=== PATIENT | male | born 1940 | race Caucasian/White ===

== ENCOUNTER → 2023-10-02 07:41 | Outpatient (REF) | payer MEDICARE, SELFPAY ==
[2023-10-02 10:05] LABS: % Basophils 0.3 % (0-2); % Eosinophils 1.2 % (0-6); % Immature Granulocytes 0.2 % (0-0.5); % Lymphocytes 36.4 % (20.5-51.1); % Monocytes 8.4 % (1.7-9.3); % Neutrophils 53.5 % (42.2-75.2); Absolute Eosinophils 0.1 10^3/uL (0-0.7); Absolute Lymphocytes 2.4 10^3/uL (1.2-3.4); Absolute Monocytes 0.6 10^3/uL (0.1-0.6); Absolute Neutrophils 3.5 10^3/uL (1.4-6.5); Hematocrit 43.5 % (39.0-52.0); Hemoglobin 14.6 g/dL (13.0-18.0); Mean Corp Hgb Conc. 33.6 g/dL (33.0-37.0); Mean Corpuscular Hgb 32.4 pg (27.0-31.0); Mean Corpuscular Volume 96.5 fL (80.0-94.0); Nucleated Red Blood Cells % 0 % (-); Platelet Count 183 10^3/uL (130-400); Red Blood Cell Count 4.51 10^6/uL (4.70-6.10); Red Cell Dist. Width 12.2 % (11.5-14.5); White Blood Cell Count 6.6 10^3/uL (4.8-10.8)
[2023-10-02 11:04] LABS: ALT (SGPT) 20 U/L (0-50); AST (SGOT) 32 U/L (17-59); Albumin 4.1 g/dl (3.5-5.0); Alkaline Phosphatase 49 U/L (38-126); Blood Urea Nitrogen 20 mg/dl (9-20); Calcium 9.7 mg/dl (8.4-10.2); Carbon Dioxide 27 mmol/L (22-30); Chloride 105 mmol/L (98-107); Glucose 99 mg/dl (70-99); HDL Cholesterol 52 mg/dl; LDL Cholesterol, Calculated 102 mg/dl; Potassium 4.5 mmol/L (3.5-5.1); Sodium 136 mmol/L (135-145); Total Cholesterol 175 mg/dl (50-199); Total Protein 6.9 g/dl (6.3-8.2); Triglyceride 105 mg/dl (10-149); Very Low Density Lipoprotein 21 mg/dl (0-30); eGFR > 60.00
[2023-10-02 11:35] LABS: PSA, Total - Screen 3.06 ng/ml (0.0-4.0); TSH 2.76 uIU/ml (0.47-4.68)
[2023-10-02 12:06] LABS: Glycohemoglobin (HgbA1c) 5.9 % (4.0-5.6)
== END ==
LOC: HWLAB 07:41
PROVIDERS: ATTENDING PHYSICIAN Family Medicine
DX: E78.49 Other hyperlipidemia (principal); E73.9 Lactose intolerance, unspecified; Z12.5 Encounter for screening for malignant neoplasm of prostate; E03.9 Hypothyroidism, unspecified; R73.09 Other abnormal glucose
CPT/HCPCS: 36415; 80053; 80061; 83036; 84443; 85025; G0103

== ENCOUNTER 2024-01-05 23:58 | Inpatient (IN) | payer MEDICARE, SELFPAY ==
[2024-01-05 21:57] VITALS: BP 134/98
[2024-01-05 22:09] LABS: % Basophils 0.1 % (0-2); % Eosinophils 0.1 % (0-6); % Immature Granulocytes 0.3 % (0-0.5); % Lymphocytes 24.2 % (20.5-51.1); % Monocytes 10.5 % (1.7-9.3); % Neutrophils 64.8 % (42.2-75.2); Absolute Monocytes 1.3 10^3/uL (0.1-0.6); Absolute Neutrophils 8.1 10^3/uL (1.4-6.5); Hematocrit 43.8 % (39.0-52.0); Hemoglobin 15.3 g/dL (13.0-18.0); Mean Corp Hgb Conc. 34.9 g/dL (33.0-37.0); Mean Corpuscular Hgb 31.2 pg (27.0-31.0); Mean Corpuscular Volume 89.4 fL (80.0-94.0); Mean Platelet Volume 10.2 fL (7.4-10.4); Nucleated Red Blood Cells % 0 % (-); Platelet Count 196 10^3/uL (130-400); Red Cell Dist. Width 11.9 % (11.5-14.5); White Blood Cell Count 12.5 10^3/uL (4.8-10.8)
[2024-01-05 22:29] LABS: ALT (SGPT) 16 U/L (0-50); AST (SGOT) 26 U/L (17-59); Albumin 4.5 g/dl (3.5-5.0); Blood Urea Nitrogen 27 mg/dl (9-20); Carbon Dioxide 27 mmol/L (22-30); Glucose 107 mg/dl (70-99); Potassium 4.6 mmol/L (3.5-5.1); Total Bilirubin 1.3 mg/dl (0.2-1.3); Total Protein 7.1 g/dl (6.3-8.2); eGFR > 60.00
[2024-01-05 22:38] LABS: Alkaline Phosphatase 51 U/L (38-126); Calcium 10.2 mg/dl (8.4-10.2); Chloride 100 mmol/L (98-107); Sodium 135 mmol/L (135-145)
--- NOTE | 2024-01-05 23:29 | ED.GENMED ---
History of Present Illness
General
Chief Complaint: Skin Problem
Source: patient
Exam Limitations: none
Time Seen by Provider: 01/05/24 23:18
History of Present Illness
History of Present Illness:
This is a 83 year old male that comes in with c/o pain and redness of the right arm. States that he had a little pimple on the elbow about 2 days ago. State that today they noticed that his arm is red and it is very painful. States that he has pain
when he bends his elbow. Family states that he is to have a cervical laminectomy on . Denies any fever, chills, chest pain, SOB, abd pain, nausea, vomiting, diarrhea, headache, dizziness. urinary burning.
Past History
Past History
ED Past Medical History: HTN, Hypercholesterolemia and Hypothyroidism
ED Past Surgical History: Cardiac (angioplasty)
Social History
Tobacco: Non-smoker
Alcohol: None
Personal:
Living: with family
Review of Systems
Review of Systems
All Other Systems: ROS reviewed and negative except as documented in HPI and ROS
Constitutional: Reports no symptoms; Denies fever or chills
EENT: Reports no symptoms
Respiratory: Reports no symptoms; Denies cough or trouble breathing
Cardiac: Reports no symptoms; Denies chest pain
ABD/GI: Reports no symptoms; Denies abdominal pain, nausea, vomiting or diarrhea
: Reports no symptoms; Denies dysuria, frequency or urgency
Musculoskeletal: Reports joint pain (Right elbow slight swelling)
Skin: Reports other (Redness right arm)
Neurological: Reports no symptoms; Denies dizzy or headache
Psychiatric: Reports no symptoms
Phy Exam
General Physical Exam
General Presentation: mild distress
General age: appears stated age
General Skin: warm and dry
General Habitus: elderly
General Mental: alert
General Hydration: appears well hydrated
ENT Exam
ENT Exam: TM's normal, pharynx normal and neck supple
Eye Exam
Eye Exam: EOMI
Cardiovascular Exam
Cardiovascular Exam: regular rate/rhythm, no edema and normal peripheral pulses
Pulmonary Exam
Pulmonary Exam: lungs clear, no respiratory distress, no rales, chest non tender, no crackles, no rhonchi, no wheezing and no cough
Gastrointestinal Exam
Gastrointestinal Exam: normal bowel sounds, non tender, soft, no organomegaly, no pulsatile mass and non distended
Musculoskeletal Exam
Musculoskeletal Exam: other (Pain with flexion of the right elbow. Slight swelling noted over the Olecranon process)
Skin Exam
Skin Exam: normal color, warm/dry, no petechia and redness (Of the right forearm into the elbow and half way up the upper arm. )
Psychiatric Exam
Psychiatric Exam: normal mood/affect
Course
Orders/Labs/Results
Orders:
Orders
01/05/24 22:02
Complete Blood Count/With Diff Urgent
Comprehensive Metabolic Panel Urgent
01/05/24 23:00
Flush (0.9% Sodium Chloride) [Flush (Nss)] See Dose Instructions IV PER PROTOCOL
01/05/24 23:29
Piperacillin/Tazo 3.375 Gram [Zosyn] 3.375 gram in 50 ml IV NOW
Vancomycin 1 Gram/200 ml [Vancocin] 1 gram in 200 ml IV NOW
01/05/24 23:54
Admit/Transfer Patient As Directed
Co-Sign Provider:
Level of Care: Inpatient admission
Assign to:: Medical/Surgical
Physician / Group: [email or web address]
Diagnosis: Rt arm cellulitis
Reason for Hospitalization: Rt arm cellulitis
Expected length of stay greater than two midnights?: Yes
ELOS- Estimated Length of Stay in days: 2
I certify the patient meets the requirements for IP care: Yes
PRN Pain Medication Management As Directed
May give lesser potent ordered pain med per pt: Yes
preference::
Protocol:: Medication orders for pain may be administered in a
manner that supports deferring to patient preference
when the pt is:
- Requesting an ordered lesser potent pain medication.
Least to most potent pain medications are defined
as: acetaminophen < NSAID < tramadol < opioids
(morphine, oxycodone, hydromorphone).
- Requesting a lesser dose of the same medication IF
ORDERED.
- Requesting a less intrusive route of administration
if both routes are prescribed by the provider (PO <
IV).
01/05/24 23:55
Code Status As Directed
Resuscitation Status: Full Code
01/06/24 00:00
CR Elbow - Right Min 3 Views Urgent
Reason For Exam: Pain and swelling
01/06/24 00:53
Acetaminophen [Tylenol] 650 mg PO Q4HPRN PRN
Bisacodyl [Dulcolax] 10 mg RECTAL [id number] PRN
Docusate W/Senna [Senokot-S] 1 tablet PO BIDPRN PRN
Piperacillin/Tazo 3.375 Gram [Zosyn] 3.375 gram in 50 ml IV Q6H
Polyethylene Glycol Powder [Miralax] 17 grams PO DAILYPRN PRN
VANCOMYCIN Pharmacy to Dose [VANCOCIN Pharmacy to Dose] 1 each Pharmacy To Prepare [Call Pharmacy To Prepare] 0 ml IV PER PROTOCOL
01/06/24 00:53
Activity As Directed
Activity Level: With Assistance
Vital Signs As Directed
Frequency: Per unit guidelines
Ot Eval And Treat Routine
Pt Eval And Treat Routine
Activity Level: With Assistance
DX Deep Vein Thrombosis Video Routine
01/06/24 Breakfast
Cholesterol Lowering
At Your Request: Full Participation
Does patient need a safe tray?: No
Cholesterol Lowering: Sodium, 2 Gram
Basic Metabolic Panel IN AM
Complete Blood Count/No Diff IN AM
01/06/24 08:00
Levothyroxine [Synthroid] 112 mcg PO DAILY
Lisinopril [Zestril] 5 mg PO DAILY
Tamsulosin [Flomax] 0.4 mg PO DAILY
simvastatin 10 mg PO DAILY
01/06/24 18:00
Enoxaparin Sodium [Lovenox] 40 mg SC QPM
Abnormal Lab Results
01/05/24
22:02
WBC 12.5 H 10^3/uL
(4.8-10.8)
MCH 31.2 H pg
(27.0-31.0)
Absolute Neuts (auto) 8.1 H 10^3/uL
(1.4-6.5)
Absolute Monos (auto) 1.3 H 10^3/uL
(0.1-0.6)
Monocytes % 10.5 H %
(1.7-9.3)
BUN 27 H mg/dl
(9-20)
Glucose 107 H mg/dl
(70-99)
01/05/24 22:02
01/05/24 22:02
Leukocytosis, Dehydration. Glucose nonfasting.
Vital Signs
Initial and Last Documented VS:
Initial Vital Signs
Temp Pulse Resp BP Pulse Ox
98.7 F 103 18 134/98 98
01/05/24 21:57 01/05/24 21:57 01/05/24 21:57 01/05/24 21:57 01/05/24 21:57
Last Documented Vital Signs
Temp Pulse Resp BP Pulse Ox
99.3 F 97 20 124/75 95
01/05/24 23:38 01/05/24 23:38 01/05/24 23:38 01/05/24 23:38 01/05/24 23:38
MDM/Problems Addressed
Differential Diagnosis Includes:
Cellulitis,
MDM/Problems Addressed:
This is a 83 year old male that comes in with c/o pain and redness of the right elbow and arm. States that there was a small pimple there 2 days ago and today they noticed that his arm is red and swollen. States that he has pain with flexion. States
that he is due to have a cervical laminectomy on .
Will get labs. Explained to patient that there is a small amount of fluid there. Would hold off on tapping elbow and start on antibiotics to treat the infection. Will admit. Hospitalist notified.
Chronic conditions affecting care:
NA
Acute Exacerbation and/or Progression of Chronic Illness:
NA
*Radiology
Radiology exam reviewed: preliminary read by ED provider (Right elbow- Small amount of fluid noted. Negative for any obvious osteomyelitis. )
*Pulse Oximetry
Patient hypoxic: no
*EKG
Interpreted by ED Provider?: NA
Rate: EKG- N/A
*[employer] Supervisor Interpretation
Rate: [employer] Supervisor- N/A
*Critical Care Note
Total Time (30-74mins, 75-104mins- exclusive of procedures): Not Applicable
ED Attending Note
-
Portions of this chart may have been created with voice recognition software.� Occasional wrong word or��sound alike� substitutions may have occurred due to the inherent limitations of voice recognition software.
Discharge Plan
Departure
Patient Disposition: Admit
Date of Disposition: 01/05/24
Time of Disposition: 23:40
Admit to: Med/Surg
Presentation/result/management discussed w/ accepting MD/DO: Hospitalist
Patient with high blood pressure during this ER visit?: Yes
Condition: Good
Covid-19: Not Applicable
Discharge Problem:
Cellulitis of arm, right
Interventions
Interventions:
*Risk Screen - Suicide Last Done: 01/05/24 21:57
*General Assessment Last Done: 01/05/24 21:57
*Neglect/Abuse Screening Last Done: 01/05/24 21:57
ED- Fall Risk Assessment Last Done: 01/05/24 23:35
*ED COVID-19 Vaccine History Last Done: 01/05/24 21:57
ED-Skin Assessment Last Done: 01/05/24 23:35
[2024-01-05 23:38] VITALS: BP 124/75
[2024-01-05 23:39] VITALS: BMI 27.5
--- NOTE | 2024-01-05 23:50 | HPS.HSE ---
Family Physician
-
Family Physician: Steve Hernandez
Chief Complaint
-
red and painful swollen Rt Elbow
History of Present Illness
HPI
83M pending cervical laminectomy01/08/24 seen at ER for evaluation of Rt elbow pain with redness, swollen and spreading down the arm.
Denied trauma or recent IV peripheral cath.
At ER VSS:
T 99.3
Labs: WCC 12.5
Pending XR elbow report.
Medical History
Past Medical History
Past Medical History: Reports HTN, Hypercholesterolemia and Hypothyroidism
Past Surgical History: Reports Cardiac (angiopalsty ) and Orthopedic (cervical laminectomy )
Social History
Tobacco: Non-smoker
Alcohol: Occasional
Drug: None
Family History
Family History: Not pertinent
Allergies / Home Medications
Allergies reflects when Allergies were last updated in [facility].
Home Medications with original date entered in [facility]
Allergy/Medication List:
Allergies
Allergy/AdvReac Type Severity Reaction Status Date / Time
No Known Allergies Allergy Verified 01/05/24 21:58
Home Medications
lisinopril 5 mg tablet 5 mg PO DAILY 12/10/22
simvastatin 10 mg tablet 10 mg PO DAILY 12/10/22
levothyroxine 112 mcg tablet 112 mcg PO DAILY 01/05/24
tamsulosin 0.4 mg capsule 0.4 mg PO DAILY 01/05/24
Review of Systems
-
Constitutional: Reports No Symptoms
EENT: Reports No Symptoms
Respiratory: Reports No Symptoms
Cardiac: Reports No Symptoms
Abdomen/GI: Reports No Symptoms
: Reports No Symptoms
Musculoskeletal: Reports See HPI
Skin: Reports See HPI
Neurological: Reports No Symptoms
Endocrine: Reports No Symptoms
Hematologic/Lymphatic: Reports No Symptoms
Psych: Reports No Symptoms
Physical Exam
Vital Signs
Vital Signs
Temp Pulse Resp BP Pulse Ox
99.3 F 97 20 124/75 95
01/05/24 23:38 01/05/24 23:38 01/05/24 23:38 01/05/24 23:38 01/05/24 23:38
Physical Exam
General: Well Developed, Well Nourished, No Apparent Distress, Comfortable and Conversant
HEENT: NormoCephalic and Anicteric
Respiratory: Clear
Cardiac: S1/S2 and Regular Rhythm
Breast: Deferred by me
Rectal: Deferred by Provider
Genito-urinary: Deferred by me
Musculoskeletal: Other (painfull, warm amd erythematous swollen and fluctual olecranon bursa and elbow )
Skin: Other (see abobe )
Neuro: AO x 3 and No Motor Deficits
Psych: Calm and Intact Judgment/Insight
Laboratory Results
-
01/05/24 22:02
01/05/24 22:02
Laboratory Results
Total Bilirubin 1.3 mg/dl (0.2-1.3) 01/05/24 22:02
AST 26 U/L (17-59) 01/05/24 22:02
ALT 16 U/L (0-50) 01/05/24 22:02
Alkaline Phosphatase 51 U/L (38-126) 01/05/24 22:02
Data Reviewed
-
Diagnostic Radiology: Other (pending XR Rt elblow )
Lab Data: Labs Reviewed by me
Impression/Plan
-
Reviewed VS: T 99.3 HR 97 BP 125/75 RR20 POx 95 on RA
Data
WCC 12.5
BUN 27
eGFR > 60
XR Rt Elbow report pending
NO PRIOR hospitalist admission:
ASSESSMENT & PLAN
Clinically suspect infected Olecranon bursitis of Rt Elbow mimicking Rt arm cellulitis with lymphangitis
- cont vancomycin and Zosyn
- trend T curve and WCC
- NPO after MN
- Ortho consult
- ID consult
Pending cervical laminectomy on 01/08/[address] [facility] Neuro surgery
- Daughter will inform Neuro surgeon at [place]
- Most likely need to postpone cervical laminectomy untill clear by ID
Essential HTN
- stable
- on Lisinopril
HLD
- control on Simvastatin
Hypothyroid
- stable
- cont. LT4 112 mcg daily
BPH
- on Tamsulosin
Valvular heart dz
B/L hearing deficit
DVT Px: LMWH
Code: Full
IP MS
[2024-01-05] MEDS: ZOSYN 50 IV (23:55)
[2024-01-06] VITALS (19 sets, daily range): BP systolic 54–134; BP diastolic 43–104; PULSE 86–100; O2SAT 95; BMI 26.2
[2024-01-06] MEDS: VANCOCIN 200 IV (00:44)
[2024-01-06] MEDS: FLUSH (NSS) 1 FLUSH IV (00:45)
[2024-01-06] MEDS: VANCOCIN HCL 500 MG 100 IV (02:21)
--- NOTE | 2024-01-06 03:55 | PTCARENOTE ---
Pt arrived to ICU room 3363 from ER via stretcher at approx 0315. Pt is currently Med/Surg level of care (in ICU as overflow). Pt able to ambulate from stretcher to bathroom independently with a walker, and then back to bed. Pt reports pain to RUE
when he extends/flexes his arm, but when he holds his arm still he states he has no pain. RUE currently elevated on a pillow. SR 80s, spot checking SpO2, 97% on RA. Physical assessment completed, see nursing shift assessment flowsheet for full
details. Admission database completed. Pt now resting in bed with eyes closed, call shields within reach.
[2024-01-06 04:12] LABS: Hematocrit 39.1 % (39.0-52.0); Hemoglobin 13.9 g/dL (13.0-18.0); Mean Corp Hgb Conc. 35.5 g/dL (33.0-37.0); Mean Corpuscular Volume 90.1 fL (80.0-94.0); Mean Platelet Volume 10.3 fL (7.4-10.4); Platelet Count 162 10^3/uL (130-400); Red Blood Cell Count 4.34 10^6/uL (4.70-6.10); Red Cell Dist. Width 11.9 % (11.5-14.5); White Blood Cell Count 11.4 10^3/uL (4.8-10.8)
[2024-01-06 04:39] LABS: Blood Urea Nitrogen 22 mg/dl (9-20); Calcium 9.3 mg/dl (8.4-10.2); Carbon Dioxide 24 mmol/L (22-30); Chloride 103 mmol/L (98-107); Estimated Creatinine Clearance 64 ml/min; Glucose 124 mg/dl (70-99); Sodium 133 mmol/L (135-145); eGFR > 60.00
[2024-01-06 05:08] LABS: TSH 1.86 uIU/ml (0.47-4.68)
[2024-01-06] MEDS: SYNTHROID 112 MCG PO (05:58)
[2024-01-06] MEDS: ZOSYN 50 IV (05:58)
[2024-01-06] MEDS: LIPITOR 10 MG PO (08:37)
[2024-01-06] MEDS: ZESTRIL 5 MG PO (08:37)
[2024-01-06] MEDS: FLOMAX 0.4 MG PO (08:37)
--- NOTE | 2024-01-06 08:39 | PTCARENOTE ---
patient seen in bed. AAO x3; RT elbow swollen, bright red, warm to touch, redness above and below RT elbow . No discharge noted . patient able to flex and extend RT arm . verbalizing RT elbow pain as sharp , 10 out of 10 pain scale level . patient
refused tylenol stating that he was taking tylenol at home with no pain relieve VS oral temp 98.3-SR 82; RR 20- 118/63.
--- NOTE | 2024-01-06 10:14 | CON.ID ---
Consultation
-
Date/Time Consultation Requested: 01/06/2024 0053
Date/Time Consultation Performed: 01/06/2024 1015
Requesting Provider: Dr. Mandeep Menon
Performing Provider: Dr. Brooke Pak
Reason for Consultation: right elbow bursitis
Chief Complaint / Past History
Chief Complaint
Right elbow swelling
History of Present Illness
83 year old male with hx CAD, HTN who noted right elbow discomfort 4 days ago. The elbow than became swollen with redness spreading up and down his arm. He came to ED last night. WBC 12.5. No hx gout. Denies trauma or injury to elbow. He does not
frequently lean elbow against desk or arm chair. No fever or chills.
Past History
Additional Past Medical History:
Hypothyroidism
HTN
HLD
CAD s/p angioplasty
BPH
Allergy History:
No Known Allergies Allergy (Verified 01/05/24 21:58)
Medications Reviewed: Yes
Current Antibiotics:
Vancomycin
Zosyn
Social History
Tobacco: Non-Smoker
Alcohol: Occasional
Drug: None
Family History
Family History: Not Pertinent
Review of Systems
Review of Systems
General: Negative Fever, Chills or Change in Appetite
HEENT: Negative Sinus Problems, Headache or Pharyngitis
Cardiovascular: Negative Chest Pain
Respiratory: Negative Dyspnea or Cough
Gasteroenterology: Other (no diarrhea); Negative Nausea or Vomiting
Genital / Urological: Negative Dysuria or Flank Pain
Endocrine: Negative Weakness
Neurological: Negative Headache or Dizziness
All systems: All other systems were reviewed and were negative
Vital Signs
Temp Pulse Resp BP Pulse Ox
98.4 F 83 20 118/63 97
01/06/24 07:57 01/06/24 08:37 01/06/24 07:57 01/06/24 08:37 01/06/24 07:57
Physical Exam
Physical Exam
Constitutional: No Acute Distress and Comfortable
Cardiovascular: Regular Rate and S1/S2
Pulmonary: Clear
Gastrointestinal: Soft, Non Tender, Non Distended and Normal Bowel Sounds
Genito-Urinary: Negative CVA Tenderness
Musculoskeletal: Other (Right olecranon with soft induration, + erythema/edema extending partially up the arm and down the forearm close to wrist, + warmth. ROM intact)
Neurological: AO x 3
Lab / Diagnostic Study Results
01/06/24 03:50
01/06/24 03:50
Abs Immat Gran (auto) 0.0 10^3/uL (0-0.05) 01/05/24 22:02
Absolute Neuts (auto) 8.1 10^3/uL (1.4-6.5) H 01/05/24 22:02
Absolute Lymphs (auto) 3.0 10^3/uL (1.2-3.4) 01/05/24 22:02
Absolute Monos (auto) 1.3 10^3/uL (0.1-0.6) H 01/05/24 22:02
Absolute Basos (auto) 0.0 10^3/uL (0-0.2) 01/05/24 22:02
Immature Gran % 0.3 % (0-0.5) 01/05/24 22:02
Neutrophils % 64.8 % (42.2-75.2) 01/05/24 22:02
Lymphocytes % 24.2 % (20.5-51.1) 01/05/24 22:02
Monocytes % 10.5 % (1.7-9.3) H 01/05/24 22:02
Eosinophils % 0.1 % (0-6) 01/05/24 22:02
Basophils % 0.1 % (0-2) 01/05/24 22:02
Microbiology Results
01/06/24 Right elbow xray: Ossification/calcification seen in the posterior soft tissues is likely calcification in the tendon, and unlikely to be avulsed fragment. There is soft tissue swelling posteriorly. There is an anterior fat pad sign
suggesting inflammation
Assessment / Plan
# Acute right olecranon septic bursitis
# Leukocytosis
- Recommend drainage of bursa, send aerobic cx.
- Narrow Vanco/Zosyn to cefazolin.
- Follow wbc.
Care Review
Plan reviewed with: Physician (Dr. Robles)
--- NOTE | 2024-01-06 12:50 | CON.ORTHO ---
Consultation
-
Date/Time Consultation Requested: 01/06/2024 @ 9:59 AM
Date/Time Consultation Performed: 01/06/2024 @ 12:00 PM
Requesting Provider: Dr. Bart Robles MD
Performing Provider: Carlos Ledesma PA-C for Dr. Víctor Vargas / Dr. Kamaljit Gandhi
Reason for Consultation: Right Elbow Bursitis
Consultation - Orthopedics
History
HPI: The patient is an 83-year-old male with a past medical history significant for CAD s/p angioplasty, HTN, HLD, hypothyroidism, and BPH who presented to [facility] Emergency Department yesterday evening, 01/05/2024 with complaints of right
elbow pain, swelling, and redness x 4 days. Patient states that he first noticed a little 'pimple' about the posterior elbow/olecranon region. The elbow then became swollen with redness spreading up and down his arm; patient's family reports that
this progressed rather quickly. Patient reports pain to the posterior elbow region with excessive flexion and terminal extension, although range of motion is intact. He denies any known trauma or injury to the right elbow. He denies any history
of Gout. He denies any recent IV peripheral cath. He denies any fevers, chills, or night sweats. He denies any anticoagulation use. WBC 12.5 in ED. Patient is currently on IV Cefazolin per ID, and family reports that the swelling and redness have
improved since initiation of IV antibiotics. Orthopedic surgery was consulted regarding treatment recommendations. Of note, patient was scheduled to undergo cervical laminectomy this upcoming , 01/08/2024 at [facility].
Past Medical History:
Past Medical History: Reports HTN, Hypercholesterolemia and Hypothyroidism
Past Surgical History: Reports Cardiac (angiopalsty) and Orthopedic (cervical laminectomy)
Social History:
Tobacco: Non-smoker
Alcohol: Occasional
Drug: None
Family History:
Family History: Not pertinent
Review of Systems: 12-point review of systems obtained and negative except those mentioned in the HPI.
Allergies / Home Medications
Allergy/AdvReac Type Severity Reaction Status Date / Time
No Known Allergies Allergy Verified 01/05/24 21:58
�Medication �Instructions �Recorded
lisinopril 5 mg tablet 5 mg PO DAILY 12/10/22
simvastatin 10 mg tablet 10 mg PO DAILY 12/10/22
levothyroxine 112 mcg tablet 112 mcg PO DAILY 01/05/24
tamsulosin 0.4 mg capsule 0.4 mg PO DAILY 01/05/24
Vital Signs / Lab Results
Temp Pulse Resp BP Pulse Ox
98.4 F 89 20 122/68 96
01/06/24 07:57 01/06/24 11:45 01/06/24 07:57 01/06/24 10:13 01/06/24 10:13
01/06/24 03:50
01/06/24 03:50
Radiographic Findings:
CR Elbow � RIGHT Min 3 Viewswas obtained at [facility] on 01/06/2024 and was made available for my review today. Findings: There is a well-corticated osseous/calcific fragment posterior to the olecranon. There is soft tissue swelling
posteriorly. There are no displaced fractures. The joint spaces are maintained. There are no lytic or sclerotic lesions. There is a small anterior fat pad sign. Impression: Ossification/calcification seen in the posterior soft tissues is likely
calcification of the tendon, and unlikely to be an avulsed fragment. There is soft tissue swelling posteriorly. There is an anterior fat pad sign suggesting inflammation.
Pertinent Labs:
ESR: 26
CRP: 174.90.
WBC: 12.5 (01/04) decreased to 11/4 (01/05).
Physical Exam:
General: Well-developed, well-nourished male in no acute distress.
HEENT: NCAT, sclera anicteric, normal conversational hearing.
Heart: No JVD.
Lungs: Normal work of breathing on room air.
MSK: Focused examination of the right upper extremity, with attention to the right elbow reveals erythema and induration around the olecranon with some very mild fluctuance. Clinically, no significant fluid collection to aspirate. Soft tissue
edema posteriorly about the olecranon. Some warmth appreciated in comparison to the contralateral side. Able to demonstrate full active range of motion with flexion, extension, supination and pronation, however terminal extension and flexion do
increase posterior elbow pain. Extensor mechanism is intact. Digital range of motion intact. Fingers are pink and warm. Capillary refill is less than 2 seconds. Patient is neurovascularly intact distally.
Assessment / Plan
Assessment: 83-year-old male with acute right olecranon bursitis and cellulitis.
Plan:
- Continue with IV Cefazolin per Infectious Disease. Continue close observation and monitor clinical picture. Patient's daughter (Lund: ) reports improvement in erythema and edema of right elbow since initiating antibiotics.
- At this time, clinically, there is no significant fluid collection to aspirate. Images of elbow and patient presentation discussed with Dr. Kamaljit Gandhi.
- If clinical picture worsens or does not improve, further consideration will be given towards surgical intervention. Case posted with OR front office developer and patient made NPO pMN incase symptoms/clinical picture worsens.
- Orthopedic surgery will follow along and re-evaluate in AM on rounds. Please reach out with any questions or concerns in the meantime.
[2024-01-06] MEDS: ANCEF 10 IV ×2 (13:14→23:36)
[2024-01-06 13:46] LABS: Erythrocyte Sed Rate 26 mm/hour (0-20)
[2024-01-06 14:22] LABS: Uric Acid 5.4 mg/dl (3.5-8.5)
[2024-01-06] MEDS: SENOKOT-S 1 TABLET PO (14:27)
[2024-01-06] MEDS: MIRALAX 17 GRAMS PO (14:27)
[2024-01-06] MEDS: ULTRAM 50 MG PO (15:18)
--- NOTE | 2024-01-06 15:19 | W.PN.HOSP.TC ---
Today's Communication/Plan
-
IV antibiotics
Monitor closely right elbow for worsening olecranon bursitis
Reinstate preadmission analgesic regimen with tramadol.
Assessment / Plan
Assessment / Plan
Impression:
Right upper extremity cellulitis with concern for right olecranon septic bursitis
Conditions prior to admission:
Nonobstructive CAD by cath 12/17/2022.
LBBB, chronic/first-degree AV block
Essential hypertension
Dyslipidemia
Hypothyroidism
History of tobacco use disorder
BPH
Plan:
Right elbow cellulitis with concern for acute right olecranon bursitis
Afebrile, although with leukocytosis
Discussed with infectious services and orthopedics
Reported improvement of erythema and induration and right elbow swelling since initiating antibiotics
Continue vancomycin and Zosyn pending cultures.
Close monitoring while orthopedic on board, if not improving or worsening of erythema and induration as well as fluctuance, consideration is for surgical intervention. Keep n.p.o. postmidnight
CAD.
Hypertension.
Dyslipidemia
Continue preadmission regimen including simvastatin, lisinopril,
Hypothyroidism on replacement.
Chronic pain
Resume preadmission tramadol regimen.
DVT prophylaxis Lovenox.
Full code.
Anticipated Discharge: 24 - 48 hours
Subjective/Interval History
-
Date of Service: January 06, 2024
Objective Data
-
Labs:
Laboratory Results
01/06/24
03:50
WBC 11.4 H
Hgb 13.9
Hct 39.1
Plt Count 162
Sodium 133 L
Potassium 4.0
Chloride 103
Carbon Dioxide 24
BUN 22 H
Creatinine 0.8
Glucose 124 H
Calcium 9.3
Vital Signs:
Vital Signs
Temp Pulse Resp BP Pulse Ox
98.4 F 89 20 122/68 96
01/06/24 07:57 01/06/24 11:45 01/06/24 07:57 01/06/24 10:13 01/06/24 10:13
Physical Exam
-
General: Well Developed and No Apparent Distress
HEENT: Normocephalic, Atraumatic and Moist Mucous Membranes
Respiratory: Clear to Auscultation
Cardiac: Regular Rhythm and S1/S2; Negative Murmur, Rub or Gallop
GI: Soft, Nontender, Nondistended and Normal Bowel Sounds; Negative Organomegaly
Rectal: Deferred by Provider
Musculoskeletal: No Clubbing, No Cyanosis, No Edema and Other (Right upper extremity with erythema and induration around elbow with mild fluctuance)
Skin: Negative Rash
Neuro: Nonfocal/Grossly Intact
[2024-01-06] MEDS: LOVENOX 40 MG SC (16:48)
--- NOTE | 2024-01-06 18:00 | PTCARENOTE ---
Called in a room by patient's . while OOB in a recliner chair with legs elevated, patient unresponsive. patient seen OOB chair with eyes closed legs elevated. SBP 56 . patient med-sure level, unable to assess cardiac rhythm. Blood suger 96.
patient diaphoretic. Transfer back to bed. Regained consciousness. SBP 96. SR on a monitor. EKG : NSR with left bundle branch block. CBC and BMP send results pending. Patient AAO x3 Neuro check WNL. Dr Menon and SAHRA Reyes made aware. At this time
patient medical level of care upgraded to telemetry
--- NOTE | 2024-01-06 18:57 | W.PN.UPDATE ---
Update Note
Progress Note Update
1834- Called urgently to bedside, patient was unresponsive sitting in the chair. He was not responding with name call or light touch however he was awakened with noxiuos stimuli. No respiratory distress noted. Patient was placed on monitor, rhythm
LBBB, chronic/first-degree AV block HR 80s, very hypotensive SBP 50s. Only medication recently received was lovenox sq and tramadol prn for pain. Patient does not remember the event, denies chest pain, SOB, cough, abdominal pain, dizziness, visual
disturbances, or nausea/vomiting. Noted he feel sweaty and slightly diaphroetic. At home he takes lisinopril for hypertension. Repeat SBP 90s, likely this was a vasovagal event. He is admitted for Right upper extremity cellulitis with concern for
right olecranon septic bursitis. mentions that he is due for spinal stenosis surgery C3-C4 next week. He has not been himself not eating and drinking as much. RN updated hospitalist Dr. Viramontes and will come to bedside. Orders placed for EKG
and lab work (CBC, BMP, and troponin) and initiate IVF.
[2024-01-06 18:58] LABS: Glucose - Point of Care 96 mg/dl (70-99)
[2024-01-06 19:25] LABS: Hemoglobin 13.8 g/dL (13.0-18.0); Mean Corp Hgb Conc. 36.3 g/dL (33.0-37.0); Mean Corpuscular Hgb 31.7 pg (27.0-31.0); Mean Corpuscular Volume 87.2 fL (80.0-94.0); Mean Platelet Volume 10.3 fL (7.4-10.4); Platelet Count 171 10^3/uL (130-400); Red Blood Cell Count 4.36 10^6/uL (4.70-6.10); Red Cell Dist. Width 12.1 % (11.5-14.5); White Blood Cell Count 9.6 10^3/uL (4.8-10.8)
[2024-01-06 19:52] LABS: Troponin I < 0.012 ng/ml
[2024-01-06 19:54] LABS: Blood Urea Nitrogen 22 mg/dl (9-20); Calcium 9.2 mg/dl (8.4-10.2); Carbon Dioxide 21 mmol/L (22-30); Chloride 102 mmol/L (98-107); Estimated Creatinine Clearance 57 ml/min; Glucose 103 mg/dl (70-99); Potassium 4.4 mmol/L (3.5-5.1); Sodium 131 mmol/L (135-145); eGFR > 60.00
[2024-01-06] MEDS: NSS 1000 IV (19:57)
--- NOTE | 2024-01-06 22:31 | PTCARENOTE ---
Received patient AAOx3, following commands, denying pain. Reports fingers tingling but nothing new. Ambulates with a walker. Normal sinus, 80s, BP 90s-100s/70s. Abdomen soft, round, nondistended, positive bowel sounds. Normothermic, +1 edema RUE.
95% on room air. Urinal to void. NSS ongoing at 100 ml/hr. Call shields within reach.
[2024-01-07] VITALS (7 sets, daily range): BP systolic 101–133; BP diastolic 56–73; PULSE 95; O2SAT 96
--- NOTE | 2024-01-07 02:06 | PTCARENOTE ---
Patient desaturated to 75%, SCREED OPERATOR notified. Patient says he has sleep apnea and wears CPAP at home, RT notified, put on CPAP.
--- NOTE | 2024-01-07 03:18 | PTCARENOTE ---
Report given to RN on , transferred without any issues.
[2024-01-07] MEDS: ANCEF 10 IV ×3 (05:19→21:12)
[2024-01-07] MEDS: SYNTHROID 112 MCG PO (05:48)
[2024-01-07] MEDS: NSS 1000 IV ×2 (06:24→16:20)
[2024-01-07] MEDS: ZESTRIL 5 MG PO (08:00)
[2024-01-07] MEDS: FLOMAX 0.4 MG PO (08:00)
[2024-01-07] MEDS: LIPITOR 10 MG PO (08:03)
--- NOTE | 2024-01-07 08:26 | W.PN.UPDATE ---
Update Note
Progress Note Update
Mr. Gonzalez is resting comfortably in bed this morning. He reports the pain in his elbow had improved slightly since yesterday. He does endorse continued tenderness about his posterior elbow. He reports he is otherwise feeling well.
Directed exam of the right elbow reveals erythema over the olecranon with extension into the triceps and forearm. Mild heat to touch. No significant collection of the olecranon bursa. Tenderness to palpation over the olecranon. Full elbow ROM,
discomfort with extension. Full ROM of wrist and hand. Neurovascularly intact distally.
WBC improving. ESR 26. CRP 174.9.
Right septic olecranon bursitis/Right elbow cellulitis
--Overall, patient continues to improve on IV antibiotics. We will continue to monitor for now.
--Continue abx per ID and medicine. Currently vanco and zosyn.
--Encouraged gentle ROM to tolerance.
--Orthopedics will continue to follow along for now.
--- NOTE | 2024-01-07 15:24 | W.PN.ID1 ---
Date of Service
Date of Service: January 07, 2024
Today's Communication
Continue cefazolin.
Assessment / Plan
# Acute right olecranon septic bursitis
# Leukocytosis- resolved
- Per ortho, no fluid to drain
- Continue cefazolin (d2)
- Elevate RUE
#Additional Past Medical History:
Hypothyroidism
HTN
HLD
CAD s/p angioplasty
BPH
Chief Complaint
-: Other (Bursitis)
Subjective / Review of Systems
Right arm slightly better
Vital Signs / Physical Exam
Vital Signs
Vital Signs
Temp Pulse Resp BP Pulse Ox
98.3 F 83 18 121/58 96
01/07/24 11:00 01/07/24 11:00 01/07/24 11:00 01/07/24 11:00 01/07/24 11:00
Physical Exam
Constitutional: No Acute Distress
Extremities: Other (RUE: Erythema and edema more localized to elbow)
Objective Data
Lab Data
Lab Results
01/06/24 19:06
01/06/24 19:06
ESR 26 mm/hour (0-20) H 01/06/24 13:07
Estimated Creat Clear 57 ml/min 01/06/24 19:06
Total Bilirubin 1.3 mg/dl (0.2-1.3) 01/05/24 22:02
AST 26 U/L (17-59) 01/05/24 22:02
ALT 16 U/L (0-50) 01/05/24 22:02
Alkaline Phosphatase 51 U/L (38-126) 01/05/24 22:02
C-Reactive Protein 174.90 mg/L (0.0-10.00) H 01/06/24 13:07
Most recent labs reviewed.
01/06/24 Right elbow xray: Ossification/calcification seen in the posterior soft tissues is likely calcification in the tendon, and unlikely to be avulsed fragment. There is soft tissue swelling posteriorly. There is an anterior fat pad sign
suggesting inflammation
[2024-01-07] MEDS: LOVENOX 40 MG SC (17:19)
--- NOTE | 2024-01-07 17:30 | CM ---
Reviewed chart, met with patient to obtain information for assessment. Patient stated that he lives with his in a two story single home with 5 steps to enter. He stated that his assists with ADLs and personal care as well as dressing and
bathing. He uses a walker to assist with his ambulation. She does the sample processor, cooking, cleaning and laundry.
Patient has not had VN services.
He has not been to a SNF.
Patient has a prescription plan and uses, [facility] in [place] for all of his medications.
Patient's PCP is, Steve Garibay.
Patient is hoping to be able to return home when stable.
Plan: Case management will continue to follow and assist with discharge planning. Will review notes and take indication on discharge plans from medical staff.
--- NOTE | 2024-01-07 17:45 | W.PN.HOSP.TC ---
Addendum entered and electronically signed by Bart Robles MD 01/14/24 17:07:
No clinical evidence of sepsis.
Mild hyponatremia present
Original Note:
Today's Communication/Plan
-
Continue IV antibiotics for right olecranon bursitis monitoring closely for possible surgical intervention.
Avoid oversedation. Hold tramadol.
Assessment / Plan
Assessment / Plan
Impression:
Right upper extremity cellulitis with concern for right olecranon septic bursitis.
Episode of altered mental status suspect transient metabolic encephalopathy secondary to oversedation with Ultram
Conditions prior to admission:
Nonobstructive CAD by cath 12/17/2022.
LBBB, chronic/first-degree AV block
Essential hypertension
Dyslipidemia
Hypothyroidism
History of tobacco use disorder
BPH
Plan:
Right elbow cellulitis with concern for acute right olecranon bursitis
Afebrile, although with leukocytosis
Discussed with infectious services and orthopedics
Reported improvement of erythema and induration and right elbow swelling since initiating antibiotics
Continue vancomycin and Zosyn pending cultures.
Close monitoring while orthopedic on board, if not improving or worsening of erythema and induration as well as fluctuance, consideration is for surgical intervention. Keep n.p.o. postmidnight
Episode of unresponsiveness and transient hypotension secondary to tramadol
Currently back to baseline of cognition and hemodynamically stable
Avoid tramadol
Continue Tylenol for pain.
CAD.
Hypertension.
Dyslipidemia
Continue preadmission regimen including simvastatin, lisinopril,
Hypothyroidism on replacement.
Chronic pain
Resume preadmission tramadol regimen.
DVT prophylaxis Lovenox.
Full code.
Anticipated Discharge: 24 - 48 hours
Subjective/Interval History
-
Date of Service: January 07, 2024
Objective Data
-
Vital Signs:
Vital Signs
Temp Pulse Resp BP Pulse Ox
99.0 F 82 18 112/67 98
01/07/24 15:00 01/07/24 15:00 01/07/24 15:00 01/07/24 15:00 01/07/24 15:00
I&O
01/06/24 01/07/24 01/08/24
06:59 06:59 06:59
Intake Total 980 / 980
Output Total 250 / 250
Balance 730 / 730
Physical Exam
-
General: Well Developed and No Apparent Distress
HEENT: Normocephalic, Atraumatic and Moist Mucous Membranes
Respiratory: Clear to Auscultation
Cardiac: Regular Rhythm and S1/S2; Negative Murmur, Rub or Gallop
GI: Soft, Nontender, Nondistended and Normal Bowel Sounds; Negative Organomegaly
Rectal: Deferred by Provider
Musculoskeletal: No Clubbing, No Cyanosis, No Edema and Other (Right upper extremity with erythema and induration around elbow with mild fluctuance)
Skin: Negative Rash
Neuro: Nonfocal/Grossly Intact
[2024-01-08] MEDS: NSS 1000 IV (02:25)
[2024-01-08 02:52] VITALS: BP 135/67
[2024-01-08] MEDS: SYNTHROID 112 MCG PO (06:00)
[2024-01-08] MEDS: ANCEF 10 IV ×3 (06:00→20:55)
[2024-01-08 07:12] LABS: % Basophils 0.4 % (0-2); % Eosinophils 0.4 % (0-6); % Immature Granulocytes 0.5 % (0-0.5); % Lymphocytes 22.3 % (20.5-51.1); % Monocytes 7.4 % (1.7-9.3); Absolute Lymphocytes 1.8 10^3/uL (1.2-3.4); Absolute Monocytes 0.6 10^3/uL (0.1-0.6); Absolute Neutrophils 5.6 10^3/uL (1.4-6.5); Hematocrit 37.3 % (39.0-52.0); Hemoglobin 12.9 g/dL (13.0-18.0); Mean Corp Hgb Conc. 34.6 g/dL (33.0-37.0); Mean Corpuscular Hgb 30.7 pg (27.0-31.0); Mean Corpuscular Volume 88.8 fL (80.0-94.0); Mean Platelet Volume 10.2 fL (7.4-10.4); Nucleated Red Blood Cells % 0 % (-); Platelet Count 155 10^3/uL (130-400); Red Cell Dist. Width 11.9 % (11.5-14.5); White Blood Cell Count 8.1 10^3/uL (4.8-10.8)
--- NOTE | 2024-01-08 07:42 | W.PN.UPDATE ---
Update Note
Progress Note Update
Patient getting frustrated with his right elbow swelling, redness and discomfort. He is afebrile and WBC has normalized. ESR 26 and CRP 174.90 from 2 days ago. Edema noted along the posterior aspect of the right elbow without fluid accumulation
within the olecranon bursa. Generalized pain in the vicinity of the bursa. Passive motion nonpainful. Erythema traveling up into the triceps and down into the forearm. I am going to add warm compress with K-pad today. He should continue with
antibiotics and reevaluate in the morning. I am going to tentatively place him on the OR schedule for tomorrow so n.p.o. after midnight.
[2024-01-08 07:50] VITALS: BP 128/85
[2024-01-08 08:04] LABS: Blood Urea Nitrogen 17 mg/dl (9-20); Calcium 8.8 mg/dl (8.4-10.2); Carbon Dioxide 21 mmol/L (22-30); Chloride 106 mmol/L (98-107); Estimated Creatinine Clearance 64 ml/min; Glucose 96 mg/dl (70-99); Potassium 4.1 mmol/L (3.5-5.1); Sodium 134 mmol/L (135-145); eGFR > 60.00
[2024-01-08] MEDS: ZESTRIL 5 MG PO (08:36)
[2024-01-08] MEDS: FLOMAX 0.4 MG PO (08:36)
[2024-01-08] MEDS: LIPITOR 10 MG PO (08:37)
--- NOTE | 2024-01-08 09:46 | W.PN.ID1 ---
Date of Service
Date of Service: January 08, 2024
Today's Communication
Recommend I+D bursa.
Assessment / Plan
# Acute right olecranon septic bursitis - slow to improve
# Leukocytosis- resolved
- Agree with I+D. Please send cultures.
- Continue cefazolin (d3)
- Elevate RUE. Apply compression
#Additional Past Medical History:
Hypothyroidism
HTN
HLD
CAD s/p angioplasty
BPH
Chief Complaint
-: Other (Bursitis)
Subjective / Review of Systems
Right arm/elbow still red and swollen.
Vital Signs / Physical Exam
Vital Signs
Vital Signs
Temp Pulse Resp BP Pulse Ox
97.9 F 102 16 128/85 100
01/08/24 07:50 01/08/24 08:36 01/08/24 07:50 01/08/24 08:36 01/08/24 09:09
Physical Exam
Constitutional: No Acute Distress
Musculoskeletal: Other (Right olecranon increased erythema/induration extending up and down arm, decreased warmth)
Objective Data
Lab Data
Lab Results
01/08/24 06:49
01/08/24 06:49
ESR 26 mm/hour (0-20) H 01/06/24 13:07
Estimated Creat Clear 64 ml/min 01/08/24 06:49
Total Bilirubin 1.3 mg/dl (0.2-1.3) 01/05/24 22:02
AST 26 U/L (17-59) 01/05/24 22:02
ALT 16 U/L (0-50) 01/05/24 22:02
Alkaline Phosphatase 51 U/L (38-126) 01/05/24 22:02
C-Reactive Protein 174.90 mg/L (0.0-10.00) H 01/06/24 13:07
Most recent labs reviewed.
01/06/24 Right elbow xray: Ossification/calcification seen in the posterior soft tissues is likely calcification in the tendon, and unlikely to be avulsed fragment. There is soft tissue swelling posteriorly. There is an anterior fat pad sign
suggesting inflammation
--- NOTE | 2024-01-08 12:34 | W.PN.HOSP.TC ---
Addendum entered and electronically signed by Elena Echevarria MD 01/08/24 12:40:
error: on cefazolin, not vanco/zosyn
Original Note:
Today's Communication/Plan
-
cont vanco/zosyn
await surgery in AM
apprec ID/ortho
Assessment / Plan
Assessment / Plan
pt is an 83 year old male
Right elbow cellulitis with concern for acute right olecranon bursitis--apprec ID/ortho--for surgery (I&D) 01/08--Continue vancomycin and Zosyn pending cultures.
Episode of unresponsiveness and transient hypotension secondary to tramadol--Currently back to baseline of cognition and hemodynamically stable--Avoid tramadol--Continue Tylenol for pain.
CAD/Essential Hypertension/Dyslipidemia--Continue preadmission regimen including simvastatin, lisinopril,
Hypothyroidism on replacement.
BPH--cont flomax
DVT prophylaxis Lovenox.
Code status --Full code
.
Anticipated Discharge: > 48 hours
Subjective/Interval History
-
Date of Service: January 08, 2024
pt c/o right arm swelling from mary wrap
Objective Data
-
Labs:
Laboratory Results
01/08/24
06:49
WBC 8.1
Hgb 12.9 L
Hct 37.3 L
Plt Count 155
Sodium 134 L
Potassium 4.1
Chloride 106
Carbon Dioxide 21 L
BUN 17
Creatinine 0.8
Glucose 96
Calcium 8.8
Vital Signs:
max temp for 24 hours
01/08/24
02:52
Temp 98.8 F
Vital Signs
Temp Pulse Resp BP Pulse Ox
97.9 F 102 16 128/85 100
01/08/24 07:50 01/08/24 08:36 01/08/24 07:50 01/08/24 08:36 01/08/24 09:09
I&O
01/07/24 01/08/24 01/09/24
06:59 06:59 06:59
Intake Total 980 / 980 480 / 480
Output Total 250 / 250
Balance 730 / 730 480 / 480
Review of Systems
-
All other systems: Reviewed and negative
Physical Exam
-
General: Well Developed, Well Nourished and No Apparent Distress
HEENT: Normocephalic and Atraumatic
Respiratory: Clear to Auscultation; Negative Wheezes or Rhonchi
Cardiac: Regular Rhythm and S1/S2; Negative Murmur
GI: Soft, Nontender, Nondistended and Normal Bowel Sounds
Musculoskeletal: No Clubbing, No Cyanosis and Other (right arm bursa swollen--arm swollen from mary wrap)
Skin: Warm
Neuro: Awake and Alert
Psych: Calm
--- NOTE | 2024-01-08 13:50 | PN.CDI ---
CDI
- -
CDI:
Physician Documentation Request
Admit Date: 01/05/24 23:58
Dear Doctor Travis,
Patient admitted with right upper extremity cellulitis/ acute right olecranon septic bursitis.
8/7 PN, 'Afebrile, although with leukocytosis.....Continue vancomycin and Zosyn pending cultures.
On admission, WBC 12.5 and HR> 90
Please clarify which of the following most accurately describes the status of the patient's infection:
Sepsis, POA
Right upper extremity cellulitis/ acute right olecranon septic bursitis only
Other
Sepsis
- Systemic manifestations of infection, with 2 or more SIRS criteria which include:
- Fever >100.4 degrees F or hypothermia < 96.8 degrees F
- Leukocytosis - WBC > 12,000 or leukopenia - WBC < 4,000 or > 10% bands
- Tachycardia > 90 beats per minute
- Tachypnea - RR > 20 breaths per minute or PaCO2 , 32mmHg
Source: Merck Manual 2013
- Indicate the known or suspected organism
- Indicate the known or suspected underlying infection, such as cellulitis
Localized Infection Only, Without Systemic Illness
- indicate the site/source, such as cellulitis
Other
Unable to Determine
Use of terms such as suspected, likely, concern for, or probable (associated with a specific diagnosis that is being evaluated, monitored, or treated as if it exists) are acceptable and can be coded in the inpatient setting, when documented at the
time of discharge.
Thank you,
Danae RUIZ,RN,CCDS
CDI Specialist
Available via [employer] text
Please use your independent medical judgment in providing your response.
--- NOTE | 2024-01-08 14:22 | PN.CDI ---
CDI
- -
CDI:
Physician Documentation Request
Admit Date: 01/05/24 23:58
Dear Doctor Travis,
Patient admitted with right upper extremity cellulitis/ acute right olecranon septic bursitis.
Na levels documented below:
Laboratory Tests
01/06/24 01/06/24
03:50 19:06
Sodium 133 L 131 L
Based on the above, could you clarify in the progress notes, the appropriate diagnosis, if significant, that supports the above abnormalities and additional evaluation, monitoring and/or treatment rendered:
Hyponatremia
Insignificant abnormal lab findings
Other
Use of terms such as suspected, likely, concern for, or probable (associated with a specific diagnosis that is being evaluated, monitored, or treated as if it exists) are acceptable and can be coded in the inpatient setting, when documented at the
time of discharge.
Thank you,
Danae RUIZ,RN,CCDS
CDI Specialist
Available via [employer] text
Please use your independent medical judgment in providing your response.
[2024-01-08 15:22] VITALS: BP 111/57
[2024-01-08 16:34] VITALS: BP 122/63; PULSE 83; O2SAT 98
[2024-01-08] MEDS: LOVENOX 40 MG SC (17:11)
[2024-01-08 23:35] VITALS: BP 119/62
[2024-01-09] MEDS: SYNTHROID 112 MCG PO (05:49)
[2024-01-09] MEDS: ANCEF 10 IV ×3 (05:49→22:08)
[2024-01-09 07:35] LABS: Hematocrit 38.7 % (39.0-52.0); Hemoglobin 13.6 g/dL (13.0-18.0); Mean Corp Hgb Conc. 35.1 g/dL (33.0-37.0); Mean Corpuscular Hgb 31.7 pg (27.0-31.0); Mean Corpuscular Volume 90.2 fL (80.0-94.0); Mean Platelet Volume 10.2 fL (7.4-10.4); Platelet Count 180 10^3/uL (130-400); Red Blood Cell Count 4.29 10^6/uL (4.70-6.10); Red Cell Dist. Width 11.9 % (11.5-14.5); White Blood Cell Count 6.3 10^3/uL (4.8-10.8)
[2024-01-09 07:56] VITALS: BP 131/71
[2024-01-09 08:12] LABS: Blood Urea Nitrogen 18 mg/dl (9-20); Calcium 9.1 mg/dl (8.4-10.2); Carbon Dioxide 23 mmol/L (22-30); Chloride 105 mmol/L (98-107); Estimated Creatinine Clearance 64 ml/min; Glucose 100 mg/dl (70-99); Magnesium 2.1 mg/dl (1.6-2.3); Potassium 4.2 mmol/L (3.5-5.1); Sodium 134 mmol/L (135-145); eGFR > 60.00
[2024-01-09] MEDS: ZESTRIL 5 MG PO (08:31)
[2024-01-09] MEDS: FLOMAX 0.4 MG PO (08:31)
[2024-01-09] MEDS: LIPITOR 10 MG PO (08:32)
--- NOTE | 2024-01-09 09:36 | W.PN.ID1 ---
Date of Service
Date of Service: January 09, 2024
Today's Communication
Please send OR cx.
Assessment / Plan
# Acute right olecranon septic bursitis - slow to improve
# Leukocytosis- resolved
- Agree with I+D. Please send cultures.
- Continue cefazolin (d4)
- Elevate RUE. Apply compression
#Additional Past Medical History:
Hypothyroidism
HTN
HLD
CAD s/p angioplasty
BPH
Chief Complaint
-: Other (Bursitis)
Subjective / Review of Systems
He removed the MAMTA-WRAP yesterday due to worsening edema
Vital Signs / Physical Exam
Vital Signs
Vital Signs
Temp Pulse Resp BP Pulse Ox
98.2 F 74 16 131/71 96
01/09/24 07:56 01/09/24 07:56 01/09/24 07:56 01/09/24 07:56 01/09/24 07:56
Physical Exam
Constitutional: No Acute Distress
Musculoskeletal: Other (RUE no significant change of erythema/induration localized to olecranon with extension to upper and lower arm. )
Objective Data
Lab Data
Lab Results
01/09/24 07:01
01/09/24 07:01
ESR 26 mm/hour (0-20) H 01/06/24 13:07
Estimated Creat Clear 64 ml/min 01/09/24 07:01
Total Bilirubin 1.3 mg/dl (0.2-1.3) 01/05/24 22:02
AST 26 U/L (17-59) 01/05/24 22:02
ALT 16 U/L (0-50) 01/05/24 22:02
Alkaline Phosphatase 51 U/L (38-126) 01/05/24 22:02
C-Reactive Protein 174.90 mg/L (0.0-10.00) H 01/06/24 13:07
Most recent labs reviewed.
01/06/24 Right elbow xray: Ossification/calcification seen in the posterior soft tissues is likely calcification in the tendon, and unlikely to be avulsed fragment. There is soft tissue swelling posteriorly. There is an anterior fat pad sign
suggesting inflammation
--- NOTE | 2024-01-09 10:04 | W.PN.UPDATE ---
Update Note
Progress Note Update
Patient was seen this morning on rounds.
Continues to be erythema and mild bogginess about the right olecranon bursa. Patient reports that his symptoms are improving. Discussed with patient that he was tentative for the operating room this afternoon pending soon clinical exam however
patient disagreed and reports he was only intended for drainage; discussed with the patient there may be a miscommunication. Given that he does have some reported clinical improvement, I agree with the patient we consider a bedside aspiration of
the bursa today. Diet order was placed. Will obtain aspiration of the right olecranon bursa and sent for cultures and Gram stain and continue to follow clinically with broad-spectrum antibiotics at this time..Patient was seen this morning on
rounds.
Continues to be erythema and mild bogginess about the right olecranon bursa. Patient reports that his symptoms are improving. Discussed with patient that he was tentative for the operating room this afternoon pending soon clinical exam however
patient disagreed and reports he was only intended for drainage; discussed with the patient there may be a miscommunication. Given that he does have some reported clinical improvement, I agree with the patient we consider a bedside aspiration of
the bursa today. Diet order was placed. Will obtain aspiration of the right olecranon bursa and sent for cultures and Gram stain and continue to follow clinically with broad-spectrum antibiotics at this time..
--- NOTE | 2024-01-09 10:08 | W.PN.HOSP.TC ---
Today's Communication/Plan
-
see A/P
Assessment / Plan
Assessment / Plan
A/P:
# Right elbow cellulitis with concern for acute right olecranon bursitis
for surgery (I&D) 01/08
Continue vancomycin and Zosyn, follow cultures.
apprec ID/ortho
# Episode of unresponsiveness and transient hypotension secondary to tramadol
MS back to baseline, hemodynamically stable
Avoid tramadol
Continue Tylenol for pain control
# CAD
# Essential Hypertension
# Dyslipidemia
Continue preadmission regimen including simvastatin, lisinopril
# Hypothyroidism on replacement.
# BPH cont flomax
DVT prophylaxis Lovenox.
Code status: Full code
.
Anticipated Discharge: > 48 hours
Subjective/Interval History
-
Date of Service: January 09, 2024
Objective Data
-
Labs:
Laboratory Results
01/09/24
07:01
WBC 6.3
Hgb 13.6
Hct 38.7 L
Plt Count 180
Sodium 134 L
Potassium 4.2
Chloride 105
Carbon Dioxide 23
BUN 18
Creatinine 0.8
Glucose 100 H
Calcium 9.1
Vital Signs:
Vital Signs
Temp Pulse Resp BP Pulse Ox
36.8 C 74 16 131/71 96
01/09/24 07:56 01/09/24 07:56 01/09/24 07:56 01/09/24 07:56 01/09/24 07:56
I&O
01/08/24 01/09/24 01/10/24
06:59 06:59 06:59
Intake Total 480 / 480 1620 / 1620
Balance 480 / 480 1620 / 1620
Review of Systems
-
All other systems: Reviewed and negative
Physical Exam
-
General: Well Developed, Well Nourished, No Apparent Distress, Comfortable and Conversant
HEENT: Normocephalic and Atraumatic
Respiratory: Clear to Auscultation and Non Labored Respirations; Negative Accessory Resp Muscle Use
Cardiac: Regular Rhythm and S1/S2; Negative Murmur
GI: Soft, Nontender, Nondistended and Normal Bowel Sounds
Musculoskeletal: No Clubbing, No Cyanosis and Other (right elbow swollen and red)
Neuro: Awake and Alert
Psych: Calm and Intact Judgement/Insight
Data Reviewed
-
Labs: Labs Reviewed by me
--- NOTE | 2024-01-09 14:37 | CM ---
Reviewed chart, patient progressing well in therapy. He still requires acute level of care.
Plan: Case management will continue to follow and assist with discharge planning. Home when stable.
[2024-01-09 15:39] VITALS: BP 112/68
--- NOTE | 2024-01-09 16:25 | W.PN.UPDATE ---
Update Note
Progress Note Update
PROCEDURE: Right olecranon bursa aspiration ultrasound guided
MEDICATIONS INJECTED:
None
PROCEDURE DETAIL:
After verbal consent was obtained and laterality was confirmed, the patient was offered a nutritional assistant and declined. The right elbow underwent a limited non-vascular ultrasound examination; minimal fluid collection and mostly bursal tissue versus
coagulated blood. The target site was then identified on ultrasound. The skin was then sterilized with alcohol and the needle introduced with visualization of the needle on screen. The needle was visible on the screen and as much fluid was
aspirated as possible. Once no more aspirate could be obtained the needle was removed, There was minimal bleeding. There were no immediate side effects or adverse events and the patient was at baseline immediately following the procedure. The area
was cleaned with alcohol and a compressive wrap was applied.
Approximately 1 to 2 cc of mostly bloody serous fluid was aspirated; insufficient volume for testing. No evidence of purulent material within bursa
[2024-01-09] MEDS: LOVENOX 40 MG SC (17:35)
[2024-01-09 23:00] VITALS: BP 117/64
[2024-01-10] MEDS: SYNTHROID 112 MCG PO (06:18)
[2024-01-10] MEDS: ANCEF 10 IV (06:18)
[2024-01-10 07:38] VITALS: BP 121/74
[2024-01-10 08:02] LABS: Hematocrit 38.3 % (39.0-52.0); Hemoglobin 13.4 g/dL (13.0-18.0); Mean Corpuscular Hgb 31.7 pg (27.0-31.0); Mean Corpuscular Volume 90.5 fL (80.0-94.0); Mean Platelet Volume 9.9 fL (7.4-10.4); Platelet Count 175 10^3/uL (130-400); Red Blood Cell Count 4.23 10^6/uL (4.70-6.10); Red Cell Dist. Width 11.8 % (11.5-14.5); White Blood Cell Count 5.8 10^3/uL (4.8-10.8)
[2024-01-10] MEDS: LIPITOR 10 MG PO (08:36)
[2024-01-10] MEDS: FLOMAX 0.4 MG PO (08:36)
[2024-01-10] MEDS: ZESTRIL 5 MG PO (08:36)
[2024-01-10 08:47] LABS: Blood Urea Nitrogen 22 mg/dl (9-20); Calcium 9.3 mg/dl (8.4-10.2); Carbon Dioxide 23 mmol/L (22-30); Chloride 106 mmol/L (98-107); Estimated Creatinine Clearance 64 ml/min; Glucose 99 mg/dl (70-99); Potassium 4.3 mmol/L (3.5-5.1); Sodium 135 mmol/L (135-145); eGFR > 60.00
--- NOTE | 2024-01-10 09:03 | W.PN.UPDATE ---
Update Note
Progress Note Update
Right elbow aspiration 1-2cc of bloody fluid, not sufficient for analysis. Nothing purulent noted. Right elbow looks much better today. Minimal swelling. Erythema much improved. Full painfree ROM. Continues with IV ABX, with hopeful transition to po
on D/c. Patient anxious to go home, will discuss with Dr. Cummings/BALA. Elevation and heat/ice (whatever is more therapeutic) to the elbow. Upon D/c would suggest a 1 week follow-up with Ortho outpatient. Ortho to sign off, please reengage prior to
admission if warranted
--- NOTE | 2024-01-10 09:52 | W.PN.ID1 ---
Date of Service
Date of Service: January 10, 2024
Today's Communication
Can transition cefazolin (d5) to cephalexin 1000mg po q8h through 01/17.
Assessment / Plan
# Acute right olecranon septic bursitis - improving
# Leukocytosis- resolved
- Ortho attempted aspiration of bursa with only 1-2cc bloody fluid.
- Can transition cefazolin (d5) to cephalexin 1000mg po q8h through 01/17.
- Elevate RUE.
#Additional Past Medical History:
Hypothyroidism
HTN
HLD
CAD s/p angioplasty
BPH
Chief Complaint
-: Other (Bursitis)
Subjective / Review of Systems
Arm improving.
Vital Signs / Physical Exam
Vital Signs
Vital Signs
Temp Pulse Resp BP Pulse Ox
98.3 F 80 16 121/74 97
01/10/24 07:38 01/10/24 08:36 01/10/24 07:38 01/10/24 08:36 01/10/24 07:38
Physical Exam
Constitutional: No Acute Distress and Comfortable
Cardiovascular: Regular Rate and S1/S2
Pulmonary: Clear
Gastrointestinal: Soft, Non Tender and Non Distended
Musculoskeletal: Other (RUE erythema/edema decreasing. elbow non-tender)
Objective Data
Lab Data
Lab Results
01/10/24 07:26
01/10/24 07:26
ESR 26 mm/hour (0-20) H 01/06/24 13:07
Estimated Creat Clear 64 ml/min 01/10/24 07:26
Total Bilirubin 1.3 mg/dl (0.2-1.3) 01/05/24 22:02
AST 26 U/L (17-59) 01/05/24 22:02
ALT 16 U/L (0-50) 01/05/24 22:02
Alkaline Phosphatase 51 U/L (38-126) 01/05/24 22:02
C-Reactive Protein 174.90 mg/L (0.0-10.00) H 01/06/24 13:07
Most recent labs reviewed.
01/06/24 Right elbow xray: Ossification/calcification seen in the posterior soft tissues is likely calcification in the tendon, and unlikely to be avulsed fragment. There is soft tissue swelling posteriorly. There is an anterior fat pad sign
suggesting inflammation
Care Review
Plan reviewed with: Physician (Dr. Cummings)
--- NOTE | 2024-01-10 09:56 | W.PN.HOSP.TC ---
Addendum entered and electronically signed by Karie Cummings MD 01/10/24 13:41:
total DC time 36 min
Original Note:
Today's Communication/Plan
-
DC home today
Assessment / Plan
Assessment / Plan
A/P:
# Right elbow cellulitis with concern for acute right olecranon bursitis
s/p surgery Right olecranon bursa aspiration 01/08
Per ortho, Right elbow aspiration 1-2cc of bloody fluid, not sufficient for analysis. Nothing purulent noted.
Vancomycin and Zosyn have been switched to Ancef, can DC on cephalexin 1000mg po q8h through 01/17.
apprec ID
Outpt ortho eval in 1 week.
# Episode of unresponsiveness and transient hypotension secondary to tramadol
MS back to baseline, hemodynamically stable
Avoid tramadol
Continue Tylenol for pain control
# CAD
# Essential Hypertension
# Dyslipidemia
Continue preadmission regimen including simvastatin, lisinopril
# Hypothyroidism on replacement.
# BPH cont flomax
DVT prophylaxis Lovenox.
Code status: Full code
DW ortho team
DW ID
Anticipated Discharge: Today
Subjective/Interval History
-
Date of Service: January 10, 2024
Objective Data
-
Labs:
Laboratory Results
01/10/24
07:26
WBC 5.8
Hgb 13.4
Hct 38.3 L
Plt Count 175
Sodium 135
Potassium 4.3
Chloride 106
Carbon Dioxide 23
BUN 22 H
Creatinine 0.8
Glucose 99
Calcium 9.3
Vital Signs:
Vital Signs
Temp Pulse Resp BP Pulse Ox
36.8 C 80 16 121/74 97
01/10/24 07:38 01/10/24 08:36 01/10/24 07:38 01/10/24 08:36 01/10/24 07:38
I&O
01/09/24 01/10/24 01/11/24
06:59 06:59 06:59
Intake Total 1620 / 1620 1440 / 1440
Balance 1620 / 1620 1440 / 1440
Review of Systems
-
All other systems: Reviewed and negative
Physical Exam
-
General: Well Developed, Well Nourished, No Apparent Distress, Comfortable and Conversant
HEENT: Normocephalic and Atraumatic
Respiratory: Clear to Auscultation and Non Labored Respirations; Negative Accessory Resp Muscle Use
Cardiac: Regular Rhythm and S1/S2; Negative Murmur
GI: Soft, Nontender, Nondistended and Normal Bowel Sounds
Musculoskeletal: No Clubbing, No Cyanosis and Other (right elbow swelling has improved )
Neuro: Awake and Alert
Psych: Calm and Intact Judgement/Insight
Data Reviewed
-
Labs: Labs Reviewed by me
[2024-01-10 10:45] VITALS: BP 122/72
--- NOTE | 2024-01-10 13:20 | CM ---
pt for dc today.
IMM issued and on chart. Outpt therapy script sent home with pt.
--- NOTE | 2024-01-10 13:28 | W.DCSUMMARY ---
Discharge Summary
Discharge Data
Date of Admission: 01/05/24
Date of Discharge: 01/10/24
-
Pending Results: No
Hospital Course
Principal Diagnosis:
Right elbow cellulitis with acute right olecranon bursitis
Chronic Diagnoses:�
Coronary artery disease
Essential Hypertension
Dyslipidemia
Hypothyroidism on replacement.
Benign prostate hypertrophy on Flomax
Consultations:�
Infectious disease
Orthopedic
Procedures:�
Right olecranon bursa aspiration 01/08 by ortho
Clinical course:�
This is a 83-year-old male, with past medical history as stated above, who presented with right elbow pain and swelling.
Problem 1:
Right elbow cellulitis with acute right olecranon bursitis.
He underwent Right olecranon bursa aspiration 01/08 by ortho.
Per ortho, Right elbow aspiration retrieved 1-2cc of bloody fluid, not sufficient for analysis. Nothing purulent noted.
The patient initially received IV antibiotics vancomycin and Zosyn, which were switched to Ancef. He was discharged with Keflex 1000mg po q8h through 01/17.
He can follow-up with Ortho in 1 week post discharge.
Problem 2:
Episode of unresponsiveness and transient hypotension secondary to tramadol.
Tramadol was discontinued.
His mental status returned to baseline with stable hemodynamic.
He can continue Tylenol for pain control.
As for the rest of his medical problems, they were stable during his hospital stay.
Discharge Plan
-
Patient Disposition: Home with Home Care
Discharge Diagnosis/Procedures: Right elbow cellulitis with acute right olecranon bursitis status post bursa aspiration
Condition: Good
Diet: As tolerated
Activity: As tolerated
Additional Activity: Elevate Right arm when possible
Driving Restrictions: Not until seen by your Dr
Activity Restrictions/Additional Instructions:
Follow up with ortho in 1 week
Referrals:
FulRubén orellana PA-C [Specified Professional Personl] - in one week
Steve Hernandez MD [Family Provider] - in less than 1 week
Additional Discharge Medication Instructions: Continue cephalexin 1000 mg po q8h through 01/17.
Prescriptions:
New
cephalexin 500 mg capsule
1,000 mg PO Q8H 8 Days Qty: 48 0RF
Continued
simvastatin 10 mg Tablet
10 mg PO DAILY
lisinopril 5 mg Tablet
5 mg PO DAILY
tamsulosin 0.4 mg Capsule
0.4 mg PO DAILY
levothyroxine 112 mcg Tablet
112 mcg PO DAILY
Discontinued
tramadol 50 mg Tablet
50 mg PO BIDPRN PRN (Reason: moderate-severe pain)
Patient Comments:
01/06/24: Per PDMP, filled 09/25/23 #60 for 30 days
Discharge Orders:
Discharge Patient (As Directed); Ordered 01/10/24
Ordered By: Karie Cummings
Discharge Date and Time
Discharge Date/Time: 01/10/24 11:03
Print Language: CYPRIOT
== END 2024-01-10 11:03 | disposition home or self-care (01) | DRG 557 ==
LOC: 3 WEST ACU 23:58
PROVIDERS: Emergency Medicine; Internal Medicine; Nurse Practitioner Family; Specialist; Student in an Organized Health Care Education/Training Program; ADMITTING PHYSICIAN Internal Medicine; ATTENDING PHYSICIAN Internal Medicine; CONSULT PHYSICIAN Internal Medicine Infectious Disease; CONSULT PHYSICIAN Orthopaedic Surgery; EMERGENCY PHYSICIAN Emergency Medicine; FAMILY PHYSICIAN Family Medicine
PROC: 0M933ZZ Drainage of Right Elbow Bursa and Ligament, Percutaneous Approach (ICD-10-PCS; 2024-01-09)
DX: M71.121 Other infective bursitis, right elbow (principal); G93.41 Metabolic encephalopathy; L03.113 Cellulitis of right upper limb; E87.1 Hypo-osmolality and hyponatremia; I25.10 Atherosclerotic heart disease of native coronary artery without angina pectoris; E03.9 Hypothyroidism, unspecified; I10 Essential (primary) hypertension; E78.00 Pure hypercholesterolemia, unspecified; N40.0 Benign prostatic hyperplasia without lower urinary tract symptoms; R03.1 Nonspecific low blood-pressure reading
CPT/HCPCS: 73080; 80048; 80053; 82962; 83735; 84443; 84484; 84550; 85025; 85027; 85652; 86140; 93005; 94660; 97116; 97162; 97166; 97530; 97535; 99285

== ENCOUNTER → 2024-12-09 13:11 | Outpatient (REF) | payer MEDICARE, SELFPAY | LOC: HWRAD 13:11 | PROVIDERS: ATTENDING PHYSICIAN Internal Medicine; FAMILY PHYSICIAN Family Medicine | DX: M48.062 Spinal stenosis, lumbar region with neurogenic claudication (principal) | CPT/HCPCS: 72110 ==